=== PATIENT | male | born 1980 | race Caucasian/White ===

== ENCOUNTER → 2017-08-25 | Outpatient (CLI) | payer OTHER ==
--- NOTE | 2017-08-25 14:32 | 2DMMODE ---
[place] [address] 2 D/M-MODE ECHOCARDIOGRAM Name: SANTINO ORTEGA Kody Room: [facility]#: [id number] Admission: 08/25/17 Attend Phys: Bonilla Rosa MD Discharge: Date of : 76 Date of Service: 08/25/17 1432 Report #: [id number] THIS REPORT FOR: //name// APPROVED REPORT Study performed: 08/25/2017 13:10:26 EXAM: Comprehensive 2D, Doppler, and color-flow Echocardiogram Patient Location: Out-Patient Status: routine BSA: 2.41 HR: 95 bpm BP: 140/85 mmHg Other Information Study Quality: Adequate Indications Chest Pain 2D Dimensions IVSd: 13.48 (7-11mm) LVOT Diam: 20.29 (18-24mm) LVDd: 41.98 mm PWd: 9.54 (7-11mm) Ascending Ao: 28.77 (22-36mm) LVDs: 20.86 (25-40mm) Aortic Root: 24.09 mm Volumes Left Atrial Volume (Systole) LA ESV Index: 13.90 mL/m2 Aortic Valve AoV Peak Edward.: 1.30 m/s AO Peak Gr.: 6.71 mmHg LVOT Max P.72 mmHg AO Mean Gr.: 3.54 mmHg LVOT Mean P.73 mmHg LVOT Max V: 0.96 m/s AO V2 VTI: 21.64 cm LVOT Mean V: 0.59 m/s GREG (VTI): 2.80 cm2 LVOT V1 VTI: 18.71 cm Mitral Valve E/A Ratio: 1.16 MV Decel. Time: 200.98 ms MV E Max Edward.: 0.74 m/s MV PHT: 58.28 [place] [address] 2 D/M-MODE ECHOCARDIOGRAM Name: SANTINO ORTEGA Kody Room: [facility]#: [id number] Admission: 08/25/17 Attend Phys: Bonilla Rosa MD Discharge: Date of : 76 Date of Service: 08/25/17 [facility] Report #: [id number] MVA (PHT): 3.77 cm2 TDI E/Lateral E': 4.93 E/Medial E': 7.40 Medial E' Edward.: 0.10 m/s Lateral E' Edward.: 0.15 m/s Pulmonary Valve PV Peak Edward.: 1.05 m/s PV Peak Gr.: 4.42 mmHg Left Ventricle The left ventricle is normal size. There is normal LV segmental wall motion. There is normal left ventricular wall thickness. Left ventricular systolic function is normal. The left ventricular ejection fraction is within the normal range. LVEF is 60-65%. The left ventricular diastolic function is normal. Right Ventricle The right ventricle is normal size. The right ventricular systolic function is normal. Atria The left atrium size is normal. The right atrium size is normal. Aortic Valve The aortic valve is normal in structure. No aortic regurgitation is present. There is no aortic valvular stenosis. Mitral Valve The mitral valve is normal in structure. There is no mitral valve regurgitation noted. No evidence of mitral valve stenosis. Tricuspid Valve The tricuspid valve is normal in structure. There is no tricuspid valve regurgitation noted. Pulmonic Valve The pulmonary valve is normal in structure. There is no pulmonic valvular regurgitation. Great Vessels The aortic root is normal in size. IVC is normal in size and collapses with >50% [place] [address] 2 D/M-MODE ECHOCARDIOGRAM Name: SANTINO ORTEGA Room: [facility]#: [id number] Admission: 08/25/17 Attend Phys: Bonilla Rosa MD Discharge: Date of : 76 Date of Service: 08/25/17 1432 Report #: [id number] There is no pericardial effusion. <Conclusion> Left ventricular systolic function is normal. The left ventricular ejection fraction is within the normal range. <ELECTRONICALLY SIGNED> By: Bonilla Rosa MD, FACC 08/25/17 [id number] Bonilla Rosa MD, [facility] /INF
== END ==
LOC: M.CRD 12:44 → EDSEX 13:00
DX: I10 Essential (primary) hypertension (principal)